=== PATIENT | female | born 1995 | race Caucasian/White ===

== ENCOUNTER → 2017-07-05 | Outpatient (CLI) | payer BC ==
--- NOTE | 2017-07-05 10:02 | RAD ---
EXAM: CHEST 2 VIEWS History: Cough for one month COMPARISON: None available. TECHNIQUE: PA and lateral chest radiographs FINDINGS: The cardiomediastinal silhouette is within normal limits. The lungs are clear bilaterally. The costophrenic sulci are clear and well demarcated bilaterally. IMPRESSION: No radiographic evidence of an acute cardiopulmonary abnormality.
== END | disposition home or self-care (01) ==
LOC: LAB 09:40
PROVIDERS: ATTEND Nurse Practitioner Adult Health
DX: J20.8 Acute bronchitis due to other specified organisms (principal)
CPT/HCPCS: 71020